=== PATIENT | male | born 1980 | race Caucasian/White ===

== ENCOUNTER 2016-12-03 09:50 | Emergency (ER) | payer OTHER ==
[2016-12-03 09:56] VITALS: BP 136/83; PULSE 83; TEMP 100; BMI 21.2
--- NOTE | 2016-12-03 10:01 | PDOC ---
History of Present Illness - General Chief Complaint: Respiratory Stated Complaint: THROAT PAIN, COUGH Time Seen by Provider: 12/03/16 09:53 - History of Present Illness Initial Comments: 12/03/16 10:01 Chief complaint: Sore throat for 2 days History of present illness: Patient complains of a sore throat for 2 days, especially when swallowing. Review of systems: Intermittent URI symptoms for approximately one month. Nonproductive cough, mild. No chest pain, shortness of breath, abdominal pain, nausea, vomiting, diarrhea, or high fever. Past medical history: Seminoma of the testicle, treated with surgery and radiation, 4 years ago, disease-free since. No asthma or other lung or heart disease Social/family history reviewed and noncontributory. Specifically. No smoking. Physical exam: Alert and oriented 3, well-developed well-nourished, no acute distress, cheerful and cooperative Temperature 100, remainder vital signs normal PERRLA, fundi benign, ENT clear. No unusual erythema or exudates of the throat. Neck supple without bruit mass or nodes Lungs clear with full breath sounds throughout bilaterally. CV S1 and S2 normal without murmur rub or gallop pulses full and symmetric no JVD or edema 80 and regular Abdomen soft nontender without mass or organomegaly Skin clear, no rash, adequate turgor and what mucous membranes Extremities no CCE Neurological intact. Gait stable and unimpaired Impression: URI, pharyngitis, rule out strep Plan: Strep screen and further treatment depending on results. 12/03/16 10:35 Past History - Past Medical History Allergies/Adverse Reactions: Allergies Allergy/AdvReac Type Severity Reaction Status Date / Time No Known Allergies Allergy Verified 12/03/16 09:51 Home Medications: Ambulatory Orders Acetaminophen [Tylenol -] 650 mg PO ASDIR PRN 12/03/16 Cholecalciferol (Vitamin D3) [Vitamin D3 -] 2,000 unit PO DAILY 12/03/16 Guaifenesin [Robitussin] 100 mg PO ASDIR 12/03/16 Medical Decision Making - Medical Decision Making 12/03/16 10:54 Rapid strep is negative. Probable viral URI. Treat symptomatically and follow- up if no improvement. Patient fully ambulatory and in no severe pain or other distress upon discharge to follow-up as directed *DC/Admit/Observation/Transfer Diagnosis at time of Disposition: Viral URI - Discharge Dispostion Disposition: HOME Condition at time of disposition: Stable Admit: No - Referrals Referrals: Carlos Ortega MD [Primary Care Provider] - 2 Days - Patient Instructions Printed Discharge Instructions: DI for Viral Upper Respiratory Infection -- Adult Additional Instructions: Rest, lots of fluids, Tylenol or Motrin for throat discomfort, Robitussin for congestion. See Dr. Diaz if no improvement 2-3 days for further evaluation. - Post Discharge Activity Work/School Note: Back to Work
== END 2016-12-03 11:10 | disposition home or self-care (01) ==
LOC: FER 09:50
DX: J06.9 Acute upper respiratory infection, unspecified (principal); B97.89 Other viral agents as the cause of diseases classified elsewhere; D07.69 Carcinoma in situ of other male genital organs
CPT/HCPCS: 87070; 87430; 99283-25